=== PATIENT | male | born 1955 | race African-American/Black ===

== ENCOUNTER 2023-06-23 00:59 | Inpatient (IN) | payer BC, MEDICAID ==
[~2023-06-23] VITALS: Ht 160 cm; Wt 68.0 kg
[2023-06-23] MEDS ORDERED: ALBUTEROL (0.083%) 2.5MG/3ML NEB HHN STA (01:07)
[2023-06-23] MEDS ORDERED: IPRATROPIUM BROMIDE (0.02%) 0.5MG/2.5ML NEB HHN STA (01:07)
[2023-06-23 01:53] VITALS: PULSE 93; RESP 24; O2SAT 96
[2023-06-23 02:43] LABS: BASOPHILS % 1.3 % (0.0-2.0); EOSINOPHILS % 4.8 % (0.0-5.0); LYMPHOCYTES % 33.4 % (20.0-50.0); MEAN CORPUSCULAR HEMOGLOBIN 18.3 pg (28.0-32.0); MEAN CORPUSCULAR HGB CONC 28.9 g/dL (31.0-37.0); MEAN CORPUSCULAR VOLUME 63.4 fL (80.0-94.0); MEAN PLATELET VOLUME 8.6 fl (7.4-10.4); MONOCYTES % 6.9 % (2.0-8.0); NEUTROPHILS % 53.6 % (40.0-76.0); PLATELET 141 x1000/uL (130-400); RED BLOOD CELL COUNT 2.49 mill/uL (4.7-6.1); RED CELL DISTRIBUTION WIDTH 25.5 % (11.6-14.6); WHITE BLOOD COUNT 5.6 x1000/uL (4.5-11.0)
[2023-06-23 02:49] LABS: CHLORIDE 114 mEq/L (98-107); INDEX HEMOLYSI 1 (1-3); INDEX ICTERIC 1 (1-4); INDEX LIPEMIC 1 (1-3); POTASSIUM 3.5 mEq/L (3.5-5.1); SODIUM 146 mEq/L (136-145)
[2023-06-23 02:51] LABS: DIFFERENTIAL COMMENT 1; HEMATOCRIT. 15.8 % (42.0-52.0); HEMOGLOBIN. 4.6 g/dL (14.0-18.0)
[2023-06-23 02:52] LABS: ADD RBC MORPHOLOGY YES
[2023-06-23 02:59] LABS: ALANINE AMINOTRANSFERASE 10 IU/L (13-61); ALBUMIN 3.5 g/dL (3.4-5.0); ASPARTATE AMINOTRANSFERASE 11 IU/L (15-37); BILIRUBIN TOTAL 0.3 mg/dL (0.1-1.0); CALCIUM 7.9 mg/dL (8.5-10.1); CARBON DIOXIDE 28 mEq/L (21-32); CREATININE 0.7 mg/dL (0.6-1.3); GLUCOSE 98 mg/dL (70-105); NT PRO B-TYPE NATRIURETIC PEP 847 pg/mL (5-125); PROTEIN TOTAL 6.6 g/dL (6.0-8.3); TROPONIN I HIGH SENSITIVITY 8 ng/L (<78); UREA NITROGEN BLOOD 7 mg/dL (7-21)
[2023-06-23] MEDS ORDERED: SUCRALFATE 1G TABLET PO ONE (03:00)
[2023-06-23 03:28] LABS: INDEX HEMOLYSI 1 (1-3); INDEX HEMOLYSI 4 (1-3); INDEX ICTERIC 1 (1-4); INDEX LIPEMIC 1 (1-3)
[2023-06-23 03:35] LABS: IRON 6 ug/dL (50-175); TOTAL IRON BINDING CAPACITY 489 ug/dL (250-450)
[2023-06-23] MEDS ORDERED: PANTOPRAZOLE SODIUM 40 MG/VIAL IV NR (03:45)
[2023-06-23 03:59] LABS: FOLIC ACID (FOLATE) SERUM >20 ng/mL ng/mL (>5.38); VITAMIN B12 SERUM 681 pg/mL (211-911)
[2023-06-23 04:46] VITALS: BP 102/53; PULSE 90; RESP 15; TEMP 98.9
[2023-06-23 05:01] VITALS: BP 95/43; PULSE 95; RESP 22; TEMP 98.9
[2023-06-23 05:46] LABS: HYPOCHROMASIA 2+; MICROCYTOSIS 2+; PLATELET ESTIMATE NORMAL
[2023-06-23 05:47] LABS: ANISOCYTOSIS 2+
[2023-06-23 06:53] VITALS: BP 139/68; PULSE 81; RESP 22; TEMP 99
[2023-06-23 08:00] VITALS: BP 97/42; PULSE 90; RESP 18; TEMP 98.7
[2023-06-23] MEDS ORDERED: ONDANSETRON HCL 4MG/2ML INJ IV PRN (09:45)
[2023-06-23] MEDS ORDERED: IPRATROPIUM/ALBUTEROL 0.5-3(2.5)MG/3ML NEB NEB PRN (09:45)
[2023-06-23] MEDS ORDERED: ACETAMINOPHEN 325MG TABLET PO PRN (09:45)
[2023-06-23] MEDS ORDERED: IRON SUCROSE COMPLEX 100 MG/5 ML ML IV SCH (10:00)
[2023-06-23] MEDS ORDERED: SUCRALFATE 1 G/10 ML UDC PO SCH (11:30)
[2023-06-23] MEDS ORDERED: PANTOPRAZOLE SODIUM 40 MG/VIAL IV SCH (17:00)
[2023-06-23] MEDS ORDERED: QUETIAPINE FUMARATE 25MG TABLET PO SCH (21:00)
== END 2023-06-23 13:49 | disposition short-term general hospital (02) | DRG 812 ==
LOC: ER 00:59 → MICUSO 04:11
PROVIDERS: ADMIT Internal Medicine; ATTEND Internal Medicine
PROC: 30233N1 Transfusion of Nonautologous Red Blood Cells into Peripheral Vein, Percutaneous Approach (ICD-10-PCS; principal; 2023-06-23)
DX: D50.9 Iron deficiency anemia, unspecified (principal); K92.1 Melena; J44.9 Chronic obstructive pulmonary disease, unspecified; F25.9 Schizoaffective disorder, unspecified; F14.90 Cocaine use, unspecified, uncomplicated; F31.9 Bipolar disorder, unspecified; Z59.01 Sheltered homelessness; Z87.11 Personal history of peptic ulcer disease; Z87.891 Personal history of nicotine dependence
CPT/HCPCS: 36415; 71045; 80053; 82607; 82746; 83540; 83550; 83880; 84484; 85025; 86850; 86900; 86920; 87426; 93005; 94664; 99291; C9113; P9016